=== PATIENT | male | born 1955 | race Caucasian/White ===

== ENCOUNTER 2019-08-09 20:03 | Emergency (ER) | payer OTHER, SELFPAY ==
[2019-08-09] VITALS (16 sets, daily range): BP systolic 122–146; BP diastolic 69–86; PULSE 67–78; RESP 12–21; TEMP 36.5–36.7; O2SAT 94–99
--- NOTE | 2019-08-09 20:46 | ED.GENADUL_ITS ---
Discharge Plan Disposition Patient Disposition: HOME Condition: Good Discharge Details Chief Complaint: Chest Pain Clinical Impression: Chest pain Primary Care Provider: Estephania,Local ED Provider: Rajiv Grant Meds and New Rx's Prescriptions: New sucralfate [Carafate] 1 gram tablet 1 gm PO QACHS Qty: 40 RF: 0 Continued metformin 500 mg Tablet 500 mg PO DAILY RF: 0 aspirin [Aspirin Childrens] 81 mg Tablet,Chewable 81 mg PO DAILY RF: 0 escitalopram oxalate [Lexapro] 20 mg Tablet 40 mg PO DAILY RF: 0 Prilosec OTC 20 mg Tablet,Delayed Release (Dr/Ec) 80 mg PO DAILY RF: 0 pjgynnfgp-cvwjnv-patqkzfenyzi 50-120-300 mg Tablet 1 tab PO DIRECTED RF: 0 Vitamin B-6 50 mg Capsule See Rx Instructions .ROUTE .COMPLEX RF: 0 Discharge Instructions Instructions: Chest Pain (ED) Additional Instructions: Your EKG tonight is normal. Your chest x-ray and laboratory studies are okay. As we discussed you are low risk for both blood clot and for heart disease based on revised Hertford score and HEART score. Since your pain has been 24 hours and your troponin and EKG are fine, we will discharge and have you follow-up with primary care next week. Will prescribe Carafate to add to your omeprazole for reflux. Return to ED for new or worsening pain, shortness of breath, fever, other concerns or problems. Referrals: Primary Care Provider [Outside] Medical Decision Making Patient presenting with left-sided chest pressure. No associated symptoms and n o change with exertion but constant and worsening over 24 hours. Does have a significant history of reflux. Has had normal stress testing in the past. Doubt this is cardiac in nature but will give aspirin until we have labs back. His EKG is normal. Will give GI cocktail and Carafate as suspicious for reflux given his previous history. Patient laboratory studies unremarkable. CBC is fine. Potassium a little low. Troponin is negative after 24 hours of discomfort and pressure. D-dimer is negative. Chest x-ray with some atelectasis but otherwise unremarkable. Patient is low risk for PE by revised Hertford score. Unable to PERC out due to age. D-dimer is negative. Patient also falls into low risk for cardiac disease based on HEART score. His EKG and troponin are fine after 24 hours of pain. I do not feel that he requires repeat troponin as he has had constant pain for a day. Of note his symptoms and discomfort resolved after the GI cocktail and Carafate. Patient will be discharged home to follow-up with his primary care doctor back home next week. Will go ahead and start Carafate over the weekend on the chance this is related to his reflux. Instructed to return to ED if he develops new or worsening pain, shortness of breath, fever, other concerns or problems. Lab Data Lab results reviewed: Yes I reviewed the patient's lab results. ECG Data Attestation: I personally reviewed and interpreted this ECG (s) as follows: Prior ECG tracings: not available for review Interpretation: Normal sinus rhythm with normal axis and intervals. Normal ST segments. Normal EKG. HPI General Mode of arrival: ambulatory . Date/Time Provider Initiated Documentation: 08/09/19 20:43 . Limitations to Documentation: no limitations . Information obtained by: patient and RN notes reviewed . HPI Narrative: Patient presents to ED with complaint of left-sided chest pressure. Patient reports that it started yesterday. It has been constant in nature and progressively worse over the last 24 hours. It is not worse with exertion. It feels like a pressure sensation pushing out from the left side of his chest. There is no radiation of pain. There is no fever or cough. There is no abdominal pain, nausea, vomiting. He denies history of cardiac disease and has had negative stress test in the past. He is on metformin for diabetes. He has not smoked in over 40 years. He has no leg pain or leg swelling. He is visiting up here from the [facility] area. Because the discomfort has become worse rather than resolving he decided to come in to be evaluated. Related Data Home Medications Medication Instructions Recorded Confirmed Prilosec OTC 80 mg PO DAILY 08/09/19 08/09/19 Vitamin B-6 See Rx Instructions .ROUTE .COMPLEX 08/09/19 08/09/19 aspirin [Aspirin Childrens] 81 mg PO DAILY 08/09/19 08/09/19 escitalopram oxalate [Lexapro] 40 mg PO DAILY 08/09/19 08/09/19 [id number]-[id number] 1 tab PO DIRECTED 08/09/19 08/09/19 metformin 500 mg PO DAILY 08/09/19 08/09/19 sucralfate [Carafate] 1 gm PO QAS #40 tab 08/09/19 Previous Rx's Medication Instructions Recorded sucralfate [Carafate] 1 gm PO QACHS #40 tab 08/09/19 Allergies Allergy/AdvReac Type Severity Reaction Status Date / Time oxycodone Allergy Unverified 08/09/19 20:21 General Stated Complaint: Chest Pain JUAN JOSE: 2 Review of Systems Review of Systems Narrative: 08/28 Review of Systems completed and is negative except as stated above in HPI (Systems reviewed: Const, Eyes, ENT, Resp, CV, GI, , MSK, Skin, Neuro) [facility] Medical History (Updated 08/09/19 @ 22:38 by Rajiv Grant MD) Diabetes mellitus (Chronic) GERD (gastroesophageal reflux disease) (Chronic) Latent tuberculosis by blood test (Acute) Surgical History History of cataract surgery (Chronic) History of esophageal surgery (Acute) History of hernia repair (Chronic) History of rotator cuff surgery (Acute) Hx of LASIK (Acute) Social History Smoking/Tobacco Use Status: Former Tobacco Use Alcohol Intake: current Alcohol Intake frequency: a few times a week Drug use: Never Do you feel safe at home: Yes Do you feel safe in your relationship?: Yes Exam Narrative Exam Narrative: Vitals: Afebrile. Elevated blood pressure otherwise normal vitals and pulse oximetry. Const: WDWN male in NAD. HEENT: NC/AT. Normal facial exam. Eyes: Normal conjunctiva and sclera. Neck: Supple. Trachea midline. Lungs: Normal respiratory effort. Lungs are clear. No chest wall pain. Cor: RRR without murmur/gallop. Good radial pulses. GI: Soft. NT/ND. No guarding or rebound. Neuro: A+O x 3. CN grossly in tact. Good strength and no focal deficit. Ext: No C/C/E. No calf tenderness. Skin: Warm and dry without rash. Course Vital Signs Vital signs: Vital Signs Temperature 97.7 F 08/09/19 20:17 Pulse 74 08/09/19 20:17 Respiratory Rate 12 08/09/19 20:17 Blood Pressure 146/86 H 08/09/19 20:17 Pulse Oximetry 95 08/09/19 20:17 Temperature 97.7 F 08/09/19 20:17 Temperature Source Skin 08/09/19 20:17 Pulse 74 08/09/19 20:17 Respiratory Rate 15 08/09/19 20:28 Respiratory Effort 08/09/19 20:28 Respiratory Depth Normal 08/09/19 20:28 Blood Pressure 146/86 H 08/09/19 20:17 Blood Pressure Position Supine 08/09/19 20:17 Pulse Oximetry 95 08/09/19 20:17 Oxygen Delivery Method Room Air 08/09/19 20:17 Oxygen Flow Rate 0 08/09/19 20:17 Pain Level 7 08/09/19 20:28
[2019-08-09] MEDS: Sucralfate 1 GM TAB PO (20:55)
[2019-08-09] MEDS: Aspirin 81 MG CHEW 324 MG CH (20:56)
[2019-08-09 21:22] LABS: Abs Immature Grans 0.02 k/cumm (0.0-0.09); Absolute Basophil Count 0.03 k/cumm (0.0-0.2); Absolute Eosinophil Count 0.18 k/cumm (0.0-0.7); Absolute Lymphocyte Count 1.63 k/cumm (1.2-3.4); Absolute Monocyte Count 0.75 k/cumm (0.11-0.7); Absolute Neutrophil Count 3.74 k/cumm (1.2-6.7); Basophils % 0.5; Eosinophils % 2.8; HGB 14.7 g/dL (13.5-17.5); Immature Grans % 0.3; Lymphocytes % 25.7; Mean Corp. HGB Concentration 34.2 g/dL (32.0-36.0); Mean Corpuscular Hemoglobin 29.7 pg (27.0-33.0); Mean Corpuscular Volume 86.9 fL (80-95); Mean Platelet Volume 9.2 fL (8.0-11.0); Monocytes % 11.8; Neutrophils % 58.9; Platelet Count 292 x1000/uL (130-400); RBC 4.95 m/cumm (4.50-6.00); RBC Distribution Width 13.1 % (11.8-14.1); White Blood Cell Count 6.35 k/cumm (4.4-10.8)
[2019-08-09 21:38] LABS: ALT 36 U/L (16-63); AST 21 U/L (15-37); Albumin 3.8 g/dL (3.4-5.0); Alkaline Phosphatase 128 U/L (46-116); Anion Gap 11.1 mmol/L (3-11); BUN 18 mg/dL (7-18); Bilirubin, Total 0.3 mg/dL (0.2-1.0); CO2 22.9 mmol/L (21.0-32.0); CREATININE 1.09 mg/dL (0.70-1.30); Calcium 8.4 mg/dL (8.5-10.1); Chloride 104 mmol/L (98-107); Glucose 126 mg/dL (70-100); Magnesium 1.9 mg/dL (1.8-2.4); Potassium 3.3 mmol/L (3.5-5.1); Sodium 138 mmol/L (136-145); Total Protein 7.2 g/dL (6.4-8.2)
--- NOTE | 2019-08-09 21:41 | DI.RAD_ITS ---
EXAM: XR CHEST 2V PA LATERAL INDICATION: chest pain. COMPARISON: No exams were available for comparison TECHNIQUE: 2D digital imaging was performed. FINDINGS: There is minimal scarring and/or subsegmental atelectasis involving the left lung base. No infiltrate is seen. There is no evidence of a pleural effusion or pneumothorax. The heart is not enlarged. T here is minimal elevation of the right hemidiaphragm. No acute bony abnormality is seen. IMPRESSION: Minimal elevation of the right hemidiaphragm is identified. There is no evidence of acute cardiopulmo nary disease.
[2019-08-09 21:47] LABS: Troponin I < 0.05 ng/mL (0.00-0.06)
[2019-08-09 21:55] LABS: D-Dimer 412 ng/mlFEU (<500)
--- NOTE | 2019-08-09 22:27 | DI.VRAD_ITS ---
PROCEDURE INFORMATION: Exam: XR Chest, 2 Views Exam date and time: 08/09/2019 8:45 PM Clinical history: 63 years old, male; Chest pain; Type not specified TECHNIQUE: Imaging protocol: XR of the chest Views: 2 views. COMPARISON: No relevant prior studies available. FINDINGS: Lungs: Scarring and/or subsegmental atelectasis in left lung base. No parenchymal consolidation. Pleural space: Unremarkable. No pleural effusion. No pneumothorax. Heart/Mediastinum: Unremarkable. No cardiomegaly. Diaphragm: Right hemidiaphragm is minimally elevated. Bones/joints: Unremarkable. IMPRESSION: Minimal elevation of right hemidiaphragm. Acuity cannot be determined. Dictated and Authenticated by: Fabián Horton MD. Ordering:ABRAM Vance MD
== END 2019-08-09 23:00 | disposition home or self-care (01) ==
PROVIDERS: Emergency Provider Emergency Medicine
DX: R07.9 Chest pain, unspecified (principal); E11.9 Type 2 diabetes mellitus without complications; Z79.84 Long term (current) use of oral hypoglycemic drugs
CPT/HCPCS: 36415; 80053; 93005; 99285; 71046; 83735; 84484; 85025; 85379; 93010